=== PATIENT | female | born 1990 | race Caucasian/White ===

== ENCOUNTER 2018-07-18 21:18 | Emergency (ER) | payer BC, OTHER ==
[2018-07-18 21:34] VITALS: RESP 12; TEMP 96.8
[2018-07-18 22:19] LABS: BASOPHILS % (AUTO) 0 % (0-3); EOSINOPHILS % (AUTO) 1 % (0-9); HEMATOCRIT 36 % (35-47); HEMOGLOBIN 12.5 gm/dl (12.0-15.5); LYMPHOCYTES % (AUTO) 20.3 % (10-50); MEAN CORPUSCULAR HEMOGLOBIN 31.8 pg (27.0-32.0); MEAN CORPUSCULAR HGB CONC 34.2 gm/dl (32.0-36.0); MEAN CORPUSCULAR VOLUME 93 fL (81-99); MONOCYTES % (AUTO) 7.3 % (0-12); NEUTROPHILS % (AUTO) 71.4 % (37-80)
[2018-07-18 22:37] LABS: ALBUMIN 2.3 gm/dl (3.4-5.0); BILIRUBIN,TOTAL 0.3 mg/dl (0.2-1.0); CALCIUM 8.8 mg/dl (8.5-10.1); CARBON DIOXIDE 24.6 mEq/L (21-32); CREATININE 0.55 mg/dl (0.60-1.00); POTASSIUM 3.3 mMol/L (3.5-5.1); TOTAL PROTEIN 6.1 gm/dl (6.4-8.2)
[2018-07-18 22:55] VITALS: BP 129/81; PULSE 92; O2SAT 97
== END 2018-07-18 22:55 | disposition home or self-care (01) ==
LOC: ED 21:18
DX: R51 Headache (principal); Z3A.35 35 weeks gestation of pregnancy
CPT/HCPCS: 36415; 59025; 80053; 85025; 99282; 99283

== ENCOUNTER 2018-08-08 14:18 | Inpatient (IN) | payer OTHER ==
[2018-08-08] MEDS ORDERED: METHYLERGONOVINE MALEATE 0.2 MG/ML SOL IM PRN (14:59)
[2018-08-08] MEDS ORDERED: CARBOPROST 250 MCG/ML SOL IM PRN (14:59)
[2018-08-08] MEDS ORDERED: MEPIVACAINE HCL 1% MPF 30 ML/VIAL SOL INFIL PRN (14:59)
[2018-08-08] MEDS ORDERED: SODIUM CHLORIDE 0.9% FLUSH 10 ML SOL IV PRN (14:59)
[2018-08-08] MEDS ORDERED: OXYTOCIN 10000 MU/ML SOL IM PRN (14:59)
[2018-08-08] MEDS ORDERED: LACTATED RINGERS 1,000 ML IV PRN (14:59)
[2018-08-08 15:19] LABS: BASOPHILS % (AUTO) 0 % (0-3); EOSINOPHILS % (AUTO) 1 % (0-9); HEMATOCRIT 39 % (35-47); HEMOGLOBIN 13.8 gm/dl (12.0-15.5); LYMPHOCYTES % (AUTO) 20.8 % (10-50); MEAN CORPUSCULAR HEMOGLOBIN 32.4 pg (27.0-32.0); MEAN CORPUSCULAR HGB CONC 34.9 gm/dl (32.0-36.0); MEAN CORPUSCULAR VOLUME 93 fL (81-99); MONOCYTES % (AUTO) 8.7 % (0-12); NEUTROPHILS % (AUTO) 69.6 % (37-80)
[2018-08-08] MEDS: SODIUM CHLORIDE 0.9% FLUSH 10 ML SOL IV SCH (15:32)
[2018-08-08] MEDS ORDERED: NALOXONE HYDROCHLORIDE 0.4 MG/ML SOL IV PRN (20:50)
[2018-08-08] MEDS ORDERED: EPHEDRINE SULFATE 50 MG/ML SOL IV PRN (20:50)
[2018-08-08] MEDS ORDERED: DIPHENHYDRAMINE 50 MG/ML SOL IV PRN (20:50)
[2018-08-08] MEDS ORDERED: NALBUPHINE HCL 20 MG/ML SOL IV PRN (20:50)
[2018-08-08] MEDS ORDERED: ROPIVACAINE HYDROCHLORIDE 5 MG/ML SOL ONE ×2 (20:53→20:54)
[2018-08-08] MEDS ORDERED: FENTANYL 250 MCG/ 5ML SOL ONE (20:53)
[2018-08-08] MEDS ORDERED: LIDOCAINE HCL 2% MPF 10 ML SOL ONE ×2 (20:54→23:51)
[2018-08-08] MEDS: LACTATED RINGERS 1,000 ML IV SCH ×3 (21:00→22:00)
[2018-08-08] MEDS ORDERED: EPINEPHRINE 1:1000 AMP 1 MG/ML SOL ONE ×2 (21:24→23:51)
[2018-08-08] MEDS: FENTANYL 100MCG/2ML SOL IV PRN (22:50)
[2018-08-08] MEDS ORDERED: ONDANSETRON HCL 4 MG/2 ML SOL IV PRN (23:17)
[2018-08-08] MEDS: LACTATED RINGERS 500 ML IV SCH (23:38)
[2018-08-09] MEDS ORDERED: ROPIVACAINE HYDROCHLORIDE 5 MG/ML SOL ONE (02:05)
[2018-08-09] MEDS: LACTATED RINGERS 1,000 ML IV SCH (06:11)
[2018-08-09] MEDS: SODIUM CHLORIDE 0.9% FLUSH 10 ML SOL IV SCH ×3 (07:53→23:34)
[2018-08-09] MEDS: LACTATED RINGERS 500 ML IV SCH ×2 (07:54→07:55)
[2018-08-09] MEDS ORDERED: LIDOCAINE HCL 2% MPF 10 ML SOL ONE (08:03)
[2018-08-09] MEDS ORDERED: FENTANYL 100MCG/2ML SOL ONE (08:03)
[2018-08-09] MEDS: FENTANYL 100MCG/2ML SOL IV PRN (09:19)
[2018-08-09] MEDS ORDERED: FLEET ENEMA PR PRN (10:01)
[2018-08-09] MEDS ORDERED: TEMAZEPAM 15MG 15 MG CAP PO PRN (10:01)
[2018-08-09] MEDS ORDERED: IBUPROFEN 600 MG TAB PO PRN (10:01)
[2018-08-09] MEDS ORDERED: BENZOCAINE/MENTHOL 1 SPR TOP PRN (10:01)
[2018-08-09] MEDS ORDERED: BISACODYL 10 MG SUP PR PRN (10:01)
[2018-08-09] MEDS ORDERED: METHYLERGONOVINE MALEATE 0.2 MG TAB PO PRN (10:01)
[2018-08-09] MEDS: APAP/HYDROCODONE 1 EACH TABLET PO PRN ×3 (11:36→23:34)
[2018-08-09] MEDS: WITCH HAZEL 1 EA PAD TOP PRN ×3 (14:36→21:45)
[2018-08-09] MEDS ORDERED: FAMOTIDINE 20 MG TAB ONE (20:58)
[2018-08-09] MEDS ORDERED: SERTRALINE HYDROCHLORIDE 50 MG TAB ONE (20:58)
[2018-08-09] MEDS: DOCUSATE SODIUM 100 MG SGL PO SCH (21:11)
[2018-08-09] MEDS: FAMOTIDINE 20 MG TAB PO SCH (21:11)
[2018-08-09] MEDS: FOLIC ACID 1 MG TAB PO SCH (21:11)
[2018-08-09] MEDS: SERTRALINE HYDROCHLORIDE 50 MG TAB PO SCH (21:12)
[2018-08-09] MEDS: MULTIVITAMIN2 1 EA TAB PO SCH (21:12)
[2018-08-10] MEDS: WITCH HAZEL 1 EA PAD TOP PRN ×4 (03:27→22:58)
[2018-08-10] MEDS: SODIUM CHLORIDE 0.9% FLUSH 10 ML SOL IV SCH (06:52)
[2018-08-10] MEDS: APAP/HYDROCODONE 1 EACH TABLET PO PRN ×3 (07:00→22:58)
[2018-08-10] MEDS: DOCUSATE SODIUM 100 MG SGL PO SCH ×2 (09:12→21:00)
[2018-08-10 15:30] LABS: ABO O
[2018-08-10 15:32] LABS: RH TYPE Negative
[2018-08-10] MEDS ORDERED: FAMOTIDINE 20 MG TAB ONE ×2 (20:17→21:05)
[2018-08-10] MEDS ORDERED: SERTRALINE HYDROCHLORIDE 50 MG TAB ONE ×2 (20:17→22:48)
[2018-08-10 20:48] LABS: BASOPHILS % (AUTO) 0 % (0-3); EOSINOPHILS % (AUTO) 2 % (0-9); HEMATOCRIT 28 % (35-47); HEMOGLOBIN 9.6 gm/dl (12.0-15.5); LYMPHOCYTES % (AUTO) 19.1 % (10-50); MEAN CORPUSCULAR HEMOGLOBIN 32.5 pg (27.0-32.0); MEAN CORPUSCULAR HGB CONC 34.1 gm/dl (32.0-36.0); MEAN CORPUSCULAR VOLUME 95 fL (81-99); MONOCYTES % (AUTO) 6.1 % (0-12); NEUTROPHILS % (AUTO) 72.8 % (37-80)
[2018-08-10 21:00] LABS: ALBUMIN 2.1 gm/dl (3.4-5.0); BILIRUBIN,TOTAL 0.2 mg/dl (0.2-1.0); CALCIUM 8.4 mg/dl (8.5-10.1); CARBON DIOXIDE 26.7 mEq/L (21-32); CREATININE 0.88 mg/dl (0.60-1.00); POTASSIUM 3.6 mMol/L (3.5-5.1); TOTAL PROTEIN 5.6 gm/dl (6.4-8.2)
[2018-08-10] MEDS: SERTRALINE HYDROCHLORIDE 50 MG TAB PO SCH (21:00)
[2018-08-10] MEDS: MULTIVITAMIN2 1 EA TAB PO SCH (21:01)
[2018-08-10] MEDS: FOLIC ACID 1 MG TAB PO SCH (21:01)
[2018-08-10] MEDS: FAMOTIDINE 20 MG TAB PO SCH (21:06)
[2018-08-10] MEDS ORDERED: LORAZEPAM 0.5 MG TAB PO ONE (21:08)
[2018-08-10] MEDS ORDERED: LORAZEPAM 0.5 MG TAB ONE (21:21)
[2018-08-10] MEDS ORDERED: SERTRALINE HYDROCHLORIDE 50 MG TAB PO ONE (22:18)
[2018-08-10] MEDS ORDERED: LORAZEPAM 0.5 MG TAB PO PRN (22:19)
[2018-08-11] MEDS: DOCUSATE SODIUM 100 MG SGL PO SCH ×2 (08:22→21:04)
[2018-08-11] MEDS: APAP/HYDROCODONE 1 EACH TABLET PO PRN ×2 (08:24→17:58)
[2018-08-11] MEDS: FERROUS GLUCONATE 324 MG TABLET PO SCH (11:45)
[2018-08-11] MEDS: WITCH HAZEL 1 EA PAD TOP PRN ×2 (16:34→21:05)
[2018-08-11] MEDS ORDERED: FAMOTIDINE 20 MG TAB ONE ×2 (20:34→20:37)
[2018-08-11] MEDS ORDERED: SERTRALINE HYDROCHLORIDE 50 MG TAB ONE (20:34)
[2018-08-11] MEDS ORDERED: SERTRALINE HYDROCHLORIDE 50 MG TAB PO SCH (21:00)
[2018-08-11] MEDS: FOLIC ACID 1 MG TAB PO SCH (21:05)
[2018-08-11] MEDS: MULTIVITAMIN2 1 EA TAB PO SCH (21:05)
[2018-08-11] MEDS: FAMOTIDINE 20 MG TAB PO SCH (21:05)
[2018-08-12] MEDS: WITCH HAZEL 1 EA PAD TOP PRN (07:01)
[2018-08-12] MEDS: APAP/HYDROCODONE 1 EACH TABLET PO PRN (07:01)
[2018-08-12] MEDS: FERROUS GLUCONATE 324 MG TABLET PO SCH (08:11)
[2018-08-12] MEDS: DOCUSATE SODIUM 100 MG SGL PO SCH (08:11)
[2018-08-12 17:12] VITALS: BP 118/64; PULSE 80; RESP 12; TEMP 98.2; O2SAT 97
== END 2018-08-12 16:45 | disposition home or self-care (01) | DRG 560 ==
LOC: OB 14:18 → OBSVTOIN 14:18
PROVIDERS: ADMIT Family Medicine; ATTEND Family Medicine
PROC: 10E0XZZ Delivery of Products of Conception, External Approach (ICD-10-PCS; principal; 2018-08-09)
PROC: 0KQM0ZZ Repair Perineum Muscle, Open Approach (ICD-10-PCS; 2018-08-09)
DX: O80 Encounter for full-term uncomplicated delivery (principal); F41.9 Anxiety disorder, unspecified; Z37.0 Single live birth; O66.5 Attempted application of vacuum extractor and forceps; Z3A.38 38 weeks gestation of pregnancy; M54.9 Dorsalgia, unspecified
CPT/HCPCS: 36415; 59025; 71045; 80053; 84112; 85018; 85025; 86900; 86901; 93005; 94762; J2590; J2795; J3010; A9270-GY; J3490